=== PATIENT | female | born 1945 | race Caucasian/White ===

== ENCOUNTER 2022-07-05 20:22 | Inpatient (IN) | payer MEDICARE, OTHER ==
[~2022-07-05] VITALS: Ht 162.6 cm; Wt 63.5 kg
[2022-07-05] MEDS ORDERED: IPRATROPIUM BROMIDE 0.5 MG/2.5 ML NEBU NEB ONE (21:00)
[2022-07-05] MEDS ORDERED: ALBUTEROL SULFATE 2.5 MG/3 ML NEBU NEB ONE (21:00)
--- NOTE | 2022-07-05 21:00 | NUR ---
Dr Grace at bedside. MSE in progress
--- NOTE | 2022-07-05 21:00 | NUR ---
Patient is a/ox4, able to walk to the bedside commode
[2022-07-05] MEDS ORDERED: ALBUTEROL SULFATE 2.5 MG/3 ML NEBU ONE (21:11)
[2022-07-05] MEDS ORDERED: IPRATROPIUM BROMIDE 0.5 MG/2.5 ML NEBU ONE (21:12)
[2022-07-05 21:18] LABS: HEMATOCRIT 39.6 % (31.2-41.9); MEAN CORPUSCULAR VOLUME 92.5 fL (75.5-95.3); PLATELET COUNT (AUTO) 248 K/uL (179-408)
[2022-07-05 21:28] LABS: CARBON DIOXIDE 32 mmol/L (21-32); CHLORIDE 94 mmol/L (98-107); CREATININE 0.9 mg/dL (0.6-1.3); GLUCOSE 120 mg/dL (74-106); POTASSIUM 4.4 mmol/L (3.5-5.1); UREA NITROGEN, BLOOD 24 mg/dL (7-18)
[2022-07-05 21:41] LABS: ALANINE AMINOTRANSFERASE 24 U/L (14-59); ALKALINE PHOSPHATASE 60 U/L (50-136); ASPARTATE AMINOTRANSFERASE 12 U/L (15-37); BILIRUBIN,DIRECT 0.2 mg/dL (0.0-0.2); BILIRUBIN,TOTAL 0.5 mg/dL (0.2-1.0); TOTAL PROTEIN, SERUM 8.2 g/dL (6.4-8.2)
[2022-07-05] MEDS ORDERED: VALS1TAB6 PO (21:47)
[2022-07-05] MEDS ORDERED: AMLO-212 PO (21:47)
[2022-07-05] MEDS ORDERED: ISOS60TA72 PO (21:47)
[2022-07-05] MEDS ORDERED: HYDR-3980 PO (21:47)
[2022-07-05] MEDS ORDERED: METO50TA16 PO (21:47)
[2022-07-05] MEDS ORDERED: OXYCODONE/APAP 5-325 MG TABLET ONE (23:29)
[2022-07-05] MEDS ORDERED: OXYCODONE/APAP 5-325 MG TABLET PO ONE (23:30)
[2022-07-05] MEDS ORDERED: ASPIRIN 325 MG TABLET PO ONE (23:30)
[2022-07-05] MEDS ORDERED: methylPREDNISolone SOD SUCC 125 MG/2 ML VIAL IV ONE (23:30)
--- NOTE | 2022-07-06 03:19 | NUR ---
Called [facility] for panel call
--- NOTE | 2022-07-06 03:24 | NUR ---
Patient has been accepted by Kenyatta Armstrong NP
[2022-07-06] MEDS ORDERED: ONDANSETRON 4 MG/2 ML VIAL IV PRN (03:30)
[2022-07-06] MEDS ORDERED: NITROGLYCERIN 0.4 MG/TAB BOTTLE SL PRN (03:30)
[2022-07-06] MEDS ORDERED: ACETAMINOPHEN 325 MG TABLET PO PRN (03:30)
[2022-07-06] MEDS ORDERED: DOCUSATE SODIUM 100 MG CAPSULE PO PRN (03:30)
[2022-07-06] MEDS ORDERED: hydrALAZINE HCL 20 MG/1 ML VIAL IV PRN (03:30)
[2022-07-06] MEDS ORDERED: ALBUTEROL SULFATE 2.5 MG/3 ML NEBU ONE ×2 (03:46→07:31)
[2022-07-06] MEDS ORDERED: IPRATROPIUM BROMIDE 0.5 MG/2.5 ML NEBU ONE ×2 (03:47→07:31)
--- NOTE | 2022-07-06 03:56 | NUR ---
Note devendra in EDM - 07/06/22 at 0358 by CHINYERE Patient discharged to home in stable condition. A/Ox4. NAD noted. Walked with a steady gait. Written and verbal after care instructions given. Patient verbalizes understanding of instructions. Stressed follow up or return to ER for worsening s/s.
--- NOTE | 2022-07-06 04:32 | NUR ---
Called for bed. Spoke with Winter VILLARREAL. Keerthi VILLARREAL will call back
--- NOTE | 2022-07-06 04:52 | NUR ---
Spoke with Keerthi VILLARREAL. Will call me back for bed
[2022-07-06] MEDS: ALBUTEROL SULFATE 2.5 MG/3 ML NEBU IH SCH ×7 (05:08→23:56)
[2022-07-06] MEDS: IPRATROPIUM BROMIDE 0.5 MG/2.5 ML NEBU NEB SCH ×7 (05:09→23:56)
[2022-07-06 06:29] LABS: POTASSIUM 3.6 mmol/L (3.5-5.1)
[2022-07-06 06:30] LABS: HEMATOCRIT 39.9 % (31.2-41.9); MEAN CORPUSCULAR HEMOGLOBIN 31.2 uug (24.7-32.8); MEAN CORPUSCULAR VOLUME 91.8 fL (75.5-95.3); PLATELET COUNT (AUTO) 230 K/uL (179-408)
[2022-07-06 06:35] LABS: BILIRUBIN,TOTAL 0.4 mg/dL (0.2-1.0); MAGNESIUM 1.7 mg/dL (1.8-2.4); PHOSPHOROUS 3.3 mg/dL (2.5-4.9); TOTAL PROTEIN, SERUM 7.8 g/dL (6.4-8.2)
--- NOTE | 2022-07-06 06:58 | NUR ---
Keerthi RN called back. Patient will be admitted to room 310 AM shift
--- NOTE | 2022-07-06 07:12 | NUR ---
change of shift report to Shaista VILLARREAL
[2022-07-06 07:48] LABS: THYROID STIMULATING HORMONE 0.597 mIU/mL (0.358-3.740)
[2022-07-06 08:04] LABS: *BILIRUBIN,URIN NEGATIVE (NEGATIVE); *BLOOD, URINE NEGATIVE (NEGATIVE); *CLARITY,URINE CLEAR (CLEAR); *COLOR,URINE YELLOW (YELLOW); *KETONES,URINE NEGATIVE (NEGATIVE); *UROBILINOGEN,URINE 0.2 E.U./dl (NORMAL); LEUKOCYTE ESTERASE ,URINE NEGATIVE (NEGATIVE); NITRITE, URINE NEGATIVE (NEGATIVE); UGLUCOSE NEGATIVE (NEGATIVE)
--- NOTE | 2022-07-06 08:36 | NUR ---
Pt resting in bed, speaking on the phone. No C/O SOB, CP.
[2022-07-06] MEDS ORDERED: methylPREDNISolone SOD SUCC 40 MG/ML VIAL ONE (08:57)
[2022-07-06] MEDS ORDERED: ASPIRIN EC 81 MG TABLET.DR PO ONE (08:57)
[2022-07-06] MEDS: ASPIRIN 81 MG TAB.CHEW PO SCH (09:03)
[2022-07-06] MEDS: methylPREDNISolone SOD SUCC 40 MG/ML VIAL IV SCH (09:03)
[2022-07-06] MEDS ORDERED: MORPHINE SULFATE 2 MG/1 ML DISP.SYRIN ONE (09:18)
[2022-07-06] MEDS: MORPHINE SULFATE 2 MG/1 ML DISP.SYRIN IV PRN ×2 (09:20→12:59)
--- NOTE | 2022-07-06 09:30 | NUR ---
Received this admission from ER per wheelchair 76 yo female with the s=chief complaint of shortness of breath, diagnosis of Dyspnea, chest pain. Transferred to bed comfortably. Routine admission care rendered. Placed on Tele. SR. Alert, oriented x 4. Room air with O2 sat of 96%. No SOB noted.
[2022-07-06 09:47] VITALS: BP 138/54
[2022-07-06 12:00] VITALS: BP 153/58
[2022-07-06] MEDS: METOPROLOL TARTRATE 25 MG TABLET PO SCH ×2 (12:58→20:31)
--- NOTE | 2022-07-06 13:00 | NUR ---
Complained of left hip pain, chronic, medicated with relief
[2022-07-06 16:00] VITALS: BP 134/47
[2022-07-06] MEDS ORDERED: ISOS20TA8 PO (16:38)
[2022-07-06] MEDS ORDERED: AMLO10TA59 PO (16:52)
[2022-07-06] MEDS ORDERED: METOPROLOL TARTRATE 50 MG TABLET PO SCH (17:00)
[2022-07-06] MEDS ORDERED: ISOSORBIDE MONONITRATE 60 MG TAB.SR.24H PO SCH (17:00)
[2022-07-06] MEDS: ISOSORBIDE DINITRATE 20 MG TABLET PO SCH (18:06)
[2022-07-06] MEDS: FUROSEMIDE 40 MG/4 ML VIAL IV SCH (18:06)
[2022-07-06] MEDS: HYDROCODONE/APAP 10-325 MG TABLET PO PRN ×2 (18:14→23:26)
--- NOTE | 2022-07-06 18:15 | NUR ---
Eating fairly. Room air maintained. No shortness of breath noted. Reports of hip pain. [place] po given as ordered.
[2022-07-06 20:13] VITALS: BP 128/49
[2022-07-06] MEDS: MAG HYDROX/AL HYDROX/SIMETH 30 ML LIQUID UDC PO PRN (22:53)
[2022-07-07 00:10] VITALS: BP 127/59
[2022-07-07] MEDS: IPRATROPIUM BROMIDE 0.5 MG/2.5 ML NEBU NEB SCH ×5 (03:30→14:44)
[2022-07-07] MEDS: ALBUTEROL SULFATE 2.5 MG/3 ML NEBU IH SCH ×5 (03:30→14:44)
--- NOTE | 2022-07-07 03:38 | NUR ---
@ 0330 Reviewed N orders. Began treatment but patient stoppped it and said she did not want it at this hour, would prefer to continue sleeping. vitals within normal limits. Patient awake and alert. Will continue to monitor.
[2022-07-07 04:00] VITALS: BP 128/44
--- NOTE | 2022-07-07 04:45 | NUR ---
RECEIVED CALL FROM AM [facility] TO CONFIRM PATIENTS [employer] AT 0900AM FOR CTA [facility] WITH 3D IMAGE.
[2022-07-07] MEDS: HYDROCODONE/APAP 10-325 MG TABLET PO PRN ×2 (06:04→15:35)
[2022-07-07] MEDS ORDERED: AMLODIPINE 10 MG TABLET PO SCH (09:00)
[2022-07-07] MEDS ORDERED: HYDROCHLOROTHIAZIDE 25 MG TABLET PO SCH (09:00)
[2022-07-07] MEDS: METOPROLOL TARTRATE 25 MG TABLET PO SCH (09:00)
[2022-07-07] MEDS ORDERED: AMLODIPINE 5 MG TABLET PO SCH (09:00)
[2022-07-07] MEDS ORDERED: VALSARTAN 160 MG TABLET PO SCH (09:00)
--- NOTE | 2022-07-07 09:24 | NUR ---
patient left for CTA in [place], by tyshawn, patient is alert, oriented x4, no sob, respirations are even nonlabored, skin warm and dry to touch, no skin issues noted, IV intact at left antecubital, patient and flushes well, patient denied any chest pain at this time, kept NPO, patient's blood pressure at this time, 152/62, patient stated this is normal for her. no cute distress noted.
[2022-07-07] MEDS: methylPREDNISolone SOD SUCC 40 MG/ML VIAL IV SCH (11:34)
[2022-07-07] MEDS: MORPHINE SULFATE 2 MG/1 ML DISP.SYRIN IV PRN (11:35)
[2022-07-07] MEDS: ASPIRIN 81 MG TAB.CHEW PO SCH (11:35)
[2022-07-07] MEDS: FUROSEMIDE 40 MG/4 ML VIAL IV SCH (11:41)
[2022-07-07] MEDS: ISOSORBIDE DINITRATE 20 MG TABLET PO SCH ×4 (11:41→16:14)
--- NOTE | 2022-07-07 12:28 | NUR ---
morning medications are administered late because patient was in [place] for CTA.
--- NOTE | 2022-07-07 15:08 | NUR ---
patient refused to have tele box on. risks and benefits explained, patient verbalized understanding of it, still refused to have it on. no acute distress noted, patient denied any chest pain or chest pressure, patient stated she feels fine.
[2022-07-07 16:00] VITALS: BP 147/62
[2022-07-07 16:14] VITALS: BP 147/62
--- NOTE | 2022-07-07 17:28 | NUR ---
patient want to go home, doctor Allie made aware, waiting for CTA report.
[2022-07-07] MEDS: MAG HYDROX/AL HYDROX/SIMETH 30 ML LIQUID UDC PO PRN (18:55)
--- NOTE | 2022-07-07 19:52 | NUR ---
PATIENT DISCHARGE HOME, SON PICKED UP PATIENT, CLEARED BY PRODUCT SAFETY TECHNICIAN, DR DELA CRUZ, INSTRUCTIONS PROVIDED, PATIENT VERBALIZED UNDERSTANDING OF IT, IV REMOVED, ID REMOVED, NO DISTRESS NOTED, BELONGINGS ARE ACCOUNTED AND SINGED, PATIENT IS ALERT, ORIENTED X4, AMBULATORY, SELF CARE.
== END 2022-07-07 19:30 | disposition home or self-care (01) | DRG 291 ==
LOC: ER 20:25 → TELE3 07-06 09:13
PROVIDERS: ADMIT Internal Medicine; ATTEND Internal Medicine
DX: I11.0 Hypertensive heart disease with heart failure (principal); I50.33 Acute on chronic diastolic (congestive) heart failure; E87.1 Hypo-osmolality and hyponatremia; I20.0 Unstable angina; M06.9 Rheumatoid arthritis, unspecified; R73.9 Hyperglycemia, unspecified; Z20.822 Contact with and (suspected) exposure to COVID-19; Z87.891 Personal history of nicotine dependence
CPT/HCPCS: 36415; 71045; 83605; 83735; 84100; 84443; 84484; 85025; 87040; 93005; 93307; 94640; A4663; G0378; J1940; J2270; J2920; J2930; J3590